=== PATIENT | male | born 1965 | race Caucasian/White ===

== ENCOUNTER 2025-04-17 07:46 | Emergency (ER) | payer OTHER, SELFPAY ==
[2025-04-17] VITALS (12 sets, daily range): BP systolic 107–135; BP diastolic 63–74; PULSE 50–63; RESP 16; TEMP 36.9; O2SAT 95–100; BMI 22.1
[2025-04-17 08:39] LABS: Culture Indicated Urine Cult Not Indicated
--- NOTE | 2025-04-17 09:16 | DI.CT.S_ITS ---
PROCEDURE: CT KIDNEY URETER BLADDER (KUB) INDICATIONS: RIGHT flank pain TECHNIQUE: Axial sections were acquired from the lung bases to the pubic symphysis. Coronal and sagittal reformats were performed. For radiation dose reduction, the following was used: automated exposure control, adjustment of mA and/or kV according to patient size. COMPARISON: None. FINDINGS: Image quality: Diagnostic. Lower Chest: No significant findings. URINARY: Right Kidney: Bilateral nonobstructing calculi. Mild hydronephrosis Right Ureter: 3 mm calculus at the left UVJ with mild hydroureter. Left Kidney: Nonobstructing 6 mm interpolar calculus (HU 808). Additional punctate nonobstructing calculi. No hydronephrosis. Left Ureter: No hydroureter. Bladder: Normal wall thickness. No stones. ABDOMEN: Liver: No contour-deforming solid mass. Gallbladder: No radiopaque gallstones or wall thickening. Biliary ducts: No biliary dilation. Pancreas: No ductal dilation. Spleen: Size is within normal limits. Adrenal Glands: No adrenal nodules. Stomach and Bowel: Normal colonic caliber, without significant wall thickening. Normal caliber appendix. Sigmoid diverticulosis without acute inflammation. Peritoneum: No abnormal intraperitoneal fluid. No free air. Ventral Wall: Small fat containing periumbilical hernia. Abdominal Nodes: No enlarged retroperitoneal or mesenteric lymph nodes. Vessels: Aorta and inferior vena cava are normal in size. PELVIS: Pelvic Organs: Unremarkable. Pelvic Nodes: Unremarkable. Miscellaneous: No inguinal hernias are seen. Bones: Multilevel degenerative changes without acute vertebral body compression fracture.. IMPRESSION: Right 3 mm UVJ calculus with mild upstream hydroureteronephrosis. Additional bilateral nonobstructing renal calculi measuring up to 5 mm on the left. Colonic diverticulosis without CT evidence of acute diverticulitis. Approved by: Merced Chowdary M.D.,Ph.D. on 04/17/2025 at 10:11
--- NOTE | 2025-04-17 09:18 | ED.MALEGU ---
HPI - Male Genitourinary General Chief complaint: Urogenital-Male Stated complaint: Right side Kidney pain Time Seen by Provider: 04/17/25 09:10 Source: patient Mode of arrival: Ambulatory History of Present Illness HPI Narrative: 59-year-old man previously healthy with a history of kidney stone in the past presenting with right flank pain beginning about 2:00 a.m. this morning. No fevers nausea or vomiting no shaking chills no urinary symptoms. Took ibuprofen about 4:00 a.m. still having some pain, patient came from [place] walked onto the boat and got a ride from the [employer]. Presently still having some flank pain. Reports that it is reasonably well controlled at present. Related Data Previous Rx's ?Medication ?Instructions ?Recorded ondansetron 4 mg disintegrating 4 mg PO Q6H PRN nausea and 04/17/25 tablet vomiting #14 tabs oxycodone 5 mg tablet 5 mg PO Q6H PRN pain #14 tabs 04/17/25 tamsulosin 0.4 mg capsule 0.4 mg PO BEDTIME #14 caps 04/17/25 Allergies Allergy/AdvReac Type Severity Reaction Status Date / Time No Known Drug Allergies Allergy Verified 04/17/25 07:53 Patient History Social History Smoking Status: Never smoker Smoking Status: Never smoker Exam Initial Vital Signs Initial Vital Signs: Vital Signs Temperature 98.5 F 04/17/25 07:53 Pulse Rate 52 L 04/17/25 07:53 Respiratory Rate 16 04/17/25 07:53 Blood Pressure 122/74 04/17/25 07:53 Pulse Oximetry 100 04/17/25 07:53 Oxygen Delivery Method Room Air 04/17/25 07:53 vital signs are reviewed Const General: cooperative and No acute distress [facility] Head: normocephalic and atraumatic Face and sinus: face symmetric Mouth: moist mucous membranes Eyes Pupils: PERRL EOM: EOM intact bilaterally Neck Neck: normal visual inspection, supple and No JVD Chest Chest: normal inspection of the chest Resp Effort & Inspection: normal respiratory effort and able to speak in complete sentences Auscultation: clear to auscultation bilaterally Cardio Rate: regular rate Rhythm: regular rhythm Heart Sounds: no murmurs Other: Normal heart rate GI Inspection: normal to inspection Palpation: soft Auscultation: normal bowel sounds Back/Spine/Pelvis Back: normal to inspection Skin General: no rashes or lesions noted and warm Neuro General: patient alert, patient oriented x3 and moves all extremities Speech: speech normal Extrem General: full ROM Psych Appearance: grossly normal Course Orders Ordered: ED Orders 04/17/25 08:00 Urine Microscopic Stat 04/17/25 09:16 CT kidney ureter bladder (KUB) Stat Ondansetron HCl (Ondansetron 4 Mg/2 Ml Inj) 4 mg IV NOW PRN PRN Reason: Nausea And Vomiting Last Admin: 04/17/25 09:32 Dose: 4 mg Documented By: BT Ondansetron HCl (Ondansetron 4 Mg Odt) 4 mg PO NOW PRN PRN Reason: Nausea And Vomiting Discontinued Medications Hydromorphone HCl (Hydromorphone 1 Mg Inj) 0.5 mg IV NOW ONE Stop: 04/17/25 09:17 Last Admin: 04/17/25 09:33 Dose: 0.5 mg Documented By: BT Vital Signs Vital signs: Vital Signs - 8 hr 04/17/25 07:53 Temperature 98.5 F Pulse Rate 52 L Respiratory Rate 16 Blood Pressure 122/74 Pulse Oximetry 100 Oxygen Delivery Method Room Air MDM - Male Genitourinary Lab Data Lab results narrative: Urine micro shows red cells without pyuria Labs: Lab Results 04/17/25 Range/Units 08:00 Urine RBC 5-10/hpf H (0-5/HPF) Urine WBC None seen (0-5/HPF) Ur Squamous Epith Cells None seen (0-5/HPF) Amorphous Sediment 1+ Urine Bacteria None seen (None) Ur Culture Indicated? Cult not indicated Vol Urine Centrifuged 10ml (spun) Urine Dip Bedside Urine Glucose Negative Bedside Urine Bilirubin - Negative Bedside Urine Ketone +/- 5 Urine Specific [place] 1.030 Bedside Urine Occult Blood +++ Bedside Urine pH 5.5 Bedside Urine Protein +/- 15 Bedside Urine Urobilinogen - Negative Bedside Urine Nitrite - Negative Bedside Urine Leukocytes - Negative Esterase Imaging Data CT scan - abdomen/pelvis: My Impression: Independently reviewed CT abdomen and pelvis, distal right ureteral stone Radiologist's Impression: [address] [address] [address] Scan Report Signed Patient: Ayo Kumar MR#: [id number] : 1965 Acct:[id number] Age/Sex: 59 / M Date of Service: 04/17/25 Loc: ED Accession Number: [id number] Procedure: CT kidney ureter bladder (KUB) Ordering Provider: Robel Graham MD PROCEDURE: CT KIDNEY URETER BLADDER (KUB) INDICATIONS: RIGHT flank pain TECHNIQUE: Axial sections were acquired from the lung bases to the pubic symphysis. Coronal and sagittal reformats were performed. For radiation dose reduction, the following was used: automated exposure control, adjustment of mA and/or kV according to patient size. COMPARISON: None. FINDINGS: Image quality: Diagnostic. Lower Chest: No significant findings. URINARY: Right Kidney: Bilateral nonobstructing calculi. Mild hydronephrosis Right Ureter: 3 mm calculus at the left UVJ with mild hydroureter. Left Kidney: Nonobstructing 6 mm interpolar calculus (HU 808). Additional punctate nonobstructing calculi. No hydronephrosis. Left Ureter: No hydroureter. Bladder: Normal wall thickness. No stones. ABDOMEN: Liver: No contour-deforming solid mass. Gallbladder: No radiopaque gallstones or wall thickening. Biliary ducts: No biliary dilation. Pancreas: No ductal dilation. Spleen: Size is within normal limits. Adrenal Glands: No adrenal nodules. Stomach and Bowel: Normal colonic caliber, without significant wall thickening. Normal caliber appendix. Sigmoid diverticulosis without acute inflammation. Peritoneum: No abnormal intraperitoneal fluid. No free air. Ventral Wall: Small fat containing periumbilical hernia. Abdominal Nodes: No enlarged retroperitoneal or mesenteric lymph nodes. Vessels: Aorta and inferior vena cava are normal in size. PELVIS: Pelvic Organs: Unremarkable. Pelvic Nodes: Unremarkable. Miscellaneous: No inguinal hernias are seen. Bones: Multilevel degenerative changes without acute vertebral body compression fracture.. IMPRESSION: Right 3 mm UVJ calculus with mild upstream hydroureteronephrosis. Additional bilateral nonobstructing renal calculi measuring up to 5 mm on the left. Colonic diverticulosis without CT evidence of acute diverticulitis. Approved by: Merced Chowdary M.D.,Ph.D. on 04/17/2025 at 10:11 MDM Narrative Medical decision making narrative: 59-year-old male presenting with right flank pain and history of previous kidney stone. He does not appear to be infected based on urinalysis, CT confirms the presence of a distal right ureteral stone which is relatively small and not associated with a large amount of hydronephrosis. Patient was reporting adequate pain control and nausea control at the time of discharge. He is instructed to follow up with his primary care provider in [place] for follow up discharged on oxycodone ondansetron and Flomax. Indications for return to emergency department were reviewed. Discharge Plan Departure Patient Disposition: Home Clinical Impression: Renal colic on right side Instructions: DI for Kidney Stones Activity Restrictions/Additional Instructions: Workup today shows that you have a small kidney stone on the right side, this is almost passed into the bladder it is 3 mm and I expect it is going to pass on its own with time. Make sure that you are getting adequate fluids, you do not need to drink excessively. Start the prescribed tamsulosin, it is hoped this is will help you pass the stone. I have also prescribed oxycodone that you can use as needed for pain and ondansetron that you can use as needed for nausea. Use the provided urine strainer to detect the passage of the stone. If having fevers shaking chills uncontrolled pain uncontrolled vomiting seek emergency department care. Follow up soon with the primary care provider. They may refer you to urology. Prescriptions: New ondansetron 4 mg tablet,disintegrating 4 mg PO Q6H PRN (Reason: nausea and vomiting) Qty: 14 0RF oxycodone 5 mg tablet 5 mg PO Q6H PRN (Reason: pain) Qty: 14 0RF tamsulosin 0.4 mg capsule 0.4 mg PO BEDTIME Qty: 14 0RF Stand Alone Forms: Patient Portal/API
[2025-04-17] MEDS: ONDANSETRON 4 MG/2 ML INJ IV (09:32)
[2025-04-17] MEDS: HYDROMORPHONE 1 MG INJ 0.5 MG IV (09:33)
--- NOTE | 2025-04-17 10:08 | PC.NURSE ---
Right lower back pain over to hip.
== END 2025-04-17 14:41 | disposition home or self-care (01) ==
PROVIDERS: Emergency Provider Emergency Medicine
DX: N20.0 Calculus of kidney (principal); Z87.442 Personal history of urinary calculi
CPT/HCPCS: 36415; 74176; 81003; 81015; 96374; 96375; 99284; J1171; J2405